=== PATIENT | male | born 1955 | race Asian ===

== ENCOUNTER 2018-12-03 22:22 | Emergency (ER) | payer OTHER ==
[~2018-12-03] VITALS: Ht 167.6 cm; Wt 85.0 kg
[2018-12-03 22:27] VITALS: Ht 167.6 cm; Wt 85.0 kg
[2018-12-04] MEDS ORDERED: HYDROmorphONE 0.5 MG/0.5 ML SYG IV STA (01:08)
[2018-12-04] MEDS ORDERED: ONDANSETRON 4 MG INJ IV STA (01:08)
[2018-12-04 03:32] VITALS: BP 141/82; PULSE 81; RESP 18
== END 2018-12-04 03:34 | disposition home or self-care (01) ==
LOC: E/R 22:22
DX: N28.9 Disorder of kidney and ureter, unspecified (principal); D64.9 Anemia, unspecified; R31.9 Hematuria, unspecified; E11.9 Type 2 diabetes mellitus without complications
CPT/HCPCS: 36415; 74176; 80053; 81003; 83690; 85025; 96374; 96375; J1170; J2405; Z7502